=== PATIENT | female | born 1955 | race Caucasian/White ===

== ENCOUNTER → 2016-08-31 | Outpatient (CLI) | payer OTHER | LOC: FLAB 15:14 | PROVIDERS: ATTEND Internal Medicine | DX: R06.02 Shortness of breath (principal) ==

== ENCOUNTER → 2016-10-04 | Outpatient (CLI) | payer OTHER | LOC: BMCIMAGING 08:57 | DX: Z12.31 Encounter for screening mammogram for malignant neoplasm of breast (principal); Z13.820 Encounter for screening for osteoporosis; M81.0 Age-related osteoporosis without current pathological fracture | CPT/HCPCS: G0202 ==

== ENCOUNTER → 2017-05-31 | Outpatient (CLI) | payer BC | LOC: FCPNEURO 22:56 | PROVIDERS: ATTEND Psychiatry & Neurology Sleep Medicine | DX: G47.33 Obstructive sleep apnea (adult) (pediatric) (principal) ==

== ENCOUNTER → 2017-10-27 | Outpatient (CLI) | payer OTHER | LOC: BMCIMAGING 15:23 | PROVIDERS: ATTEND Internal Medicine | DX: Z12.31 Encounter for screening mammogram for malignant neoplasm of breast (principal) ==

== ENCOUNTER 2018-05-12 15:04 | Emergency (ER) | payer OTHER ==
--- NOTE | 2018-05-12 15:33 | EDPHY ---
H & P Stated Complaint: jaw and throat pain Time Seen by Provider: 05/12/18 15:17 HPI/ROS: CHIEF COMPLAINT: Jaw pain HISTORY OF PRESENT ILLNESS: 63-year-old female presents with right-sided jaw pain. Yesterday she was chewing and felt a pop in her right TMJ. Mild pain after the episode. Today she had a another pop in the right TMJ area (without chewing) and since then she feels like her teeth are not fitting together correctly. She is able to open and close her mouth, but does not feel that she is opening her mouth fully. Associated with mild achiness in the right TMJ area. No prior history of dislocation or TMJ pain. No dental pain or swelling. REVIEW OF SYSTEMS: complete 10 point ROS reviewed and is negative except for the noted elements in the HPI - Personal History Current Tetanus Diphtheria and Acellular Pertussis (TDAP): Yes - Medical/Surgical History Hx Asthma: No Hx Chronic Respiratory Disease: Yes Hx Diabetes: No Hx Cardiac Disease: No Hx Renal Disease: No Hx Cirrhosis: No Hx Alcoholism: No Hx HIV/AIDS: No Hx Splenectomy or Spleen Trauma: No Other PMH: osteoporosis, MATIAS with cpap - Social History Smoking Status: Former smoker Alcohol Use: Sober - Physical Exam Exam: General Appearance: Alert, pleasant Eyes: Pupils equal and round, no conjunctival pallor ENT, Mouth: Tenderness over the right TMJ, no obvious dislocation, able to open and close mouth, upper and lower teeth touch when biting down, no dental swelling/tenderness Neck: Normal inspection, no swelling or tenderness Respiratory: Lungs are clear to auscultation Cardiovascular: Regular rate and rhythm Gastrointestinal: Abdomen is soft and nontender Neurological: A&O, nonfocal, normal gait Skin: Warm and dry Extremities: Normal inspection Psychiatric: Mood and affect normal Constitutional: Initial Vital Signs Temperature (C) 36.7 C 05/12/18 15:09 Heart Rate 80 05/12/18 15:09 Respiratory Rate 16 05/12/18 15:09 Blood Pressure 157/97 H 05/12/18 15:09 O2 Sat (%) 95 05/12/18 15:09 O2 Delivery Mode Room Air Allergies/Adverse Reactions: No Known Allergies Allergy (Unverified 05/18/09 22:06) Home Medications: Medication Instructions Recorded oxyCODONE/APAP 5/325 [Percocet 1 tab PO Q4HRS #10 tab 03/14/16 5/325] Medical Decision Making - Diagnostics Imaging Results: Face CT 05/12/18 15:29 Impression: 1. No evidence of TMJ dislocation. 2. Paranasal sinus disease. Findings and recommendations discussed with MIK DOVER at 1601 hour, 2017. Imaging: Discussed imaging studies w/ accounts receivable coordinator Radiologist, I viewed and interpreted images myself ED Course/Re-evaluation: Unclear if this is a rt TMJ dislocation, given that pt able to almost fully open /close her mouth. Will obtain CT mandible to assess. CT scan of the mandible reveals no dislocation. Results discussed with the patient. Encouraged patient to follow up with ENT. If sx persist, will need MRI for further assessment. Soft food diet. Ibuprofen instructions given. Differential Diagnosis: TMJ dislocation, cartilaginous injury, TMJ syndrome, dental abscess Departure - Departure Disposition: Home, Routine, Self-Care Clinical Impression: Temporomandibular joint (TMJ) pain Condition: Good Instructions: Temporomandibular Disorder (ED) Additional Instructions: Ibuprofen 600 mg 3 times daily while the pain persists. Referrals: Dalton Frank MD [Medical Doctor] - As per Instructions (Call to make an appointment.)
[2018-05-12 16:30] VITALS: BP 141/101
== END 2018-05-12 16:29 | disposition home or self-care (01) ==
DX: M26.621 Arthralgia of right temporomandibular joint (principal); J01.00 Acute maxillary sinusitis, unspecified